=== PATIENT | female | born 1975 | race Caucasian/White ===

== ENCOUNTER → 2019-11-25 | Outpatient (CLI) | payer BC, OTHER ==
[2019-11-25 12:59] LABS: BLOOD UREA NITROGEN 10 MG/DL (7-18); CALCIUM LEVEL 9.5 MG/DL (8.5-10.1); CARBON DIOXIDE LEVEL 27 MEQ/L (21-32); CHLORIDE LEVEL 103 MEQ/L (98-107); CREATININE FOR GFR 0.82 MG/DL (0.55-1.30); GLOMERULAR FILTRATION RATE > 60.0 (>58); GLUCOSE, FASTING 182 MG/DL (70-100); MAGNESIUM LEVEL 1.8 MG/DL (1.8-2.4); PHOSPHORUS LEVEL 3.6 MG/DL (2.5-4.9); POTASSIUM SERUM 3.9 MEQ/L (3.5-5.1); SODIUM LEVEL 139 MEQ/L (136-145)
[2019-11-25 13:11] LABS: PTH INTACT 79.5 PG/ML (18.5-88.0); TOTAL 25(OH) VITAMIN D 25.6 NG/ML (30.0-100.0)
== END ==
LOC: M LAB 11:29
PROVIDERS: ATTEND Nurse Practitioner Family
DX: E83.52 Hypercalcemia (principal)

== ENCOUNTER → 2020-02-11 | Outpatient (CLI) | payer BC, OTHER ==
[2020-03-14 11:41] LABS: TESTOSTERONE FREE (DIRECT) See Separate Report PG/ML; TESTOSTERONE TOTAL FOR T&D See Separate Report NG/DL
[2020-03-26 22:24] LABS: FOLLICLE STIMULATING HORMONE 67.9 mIU/mL; LUTEINIZING HORMONE 34.6 mIU/mL
== END ==
LOC: M LAB 08:03
PROVIDERS: ATTEND Obstetrics & Gynecology
DX: N93.9 Abnormal uterine and vaginal bleeding, unspecified (principal)

== ENCOUNTER → 2020-02-11 | Outpatient (CLI) | payer BC, OTHER ==
[2020-03-26 22:21] LABS: CALCIUM LEVEL 9.5 MG/DL (8.5-10.1); PTH INTACT 73.3 PG/ML (18.5-88.0); TOTAL 25(OH) VITAMIN D 23.2 NG/ML (30.0-100.0)
== END ==
LOC: M LAB 08:01
PROVIDERS: ATTEND Nurse Practitioner Family
DX: E83.52 Hypercalcemia (principal); E55.9 Vitamin D deficiency, unspecified

== ENCOUNTER → 2023-05-07 | Outpatient (CLI) | payer BC, OTHER ==
[2023-05-07 07:03] LABS: FREE T4 1.16 NG/DL (0.89-1.76)
[2023-05-07 07:04] LABS: THYROID PEROXIDASE ANTIBODY < 28.0 U/ML (<60.0); THYROID STIMULATING HORMONE 1.822 uIU/ML (0.55-4.78)
== END ==
LOC: M LAB 06:04
PROVIDERS: ATTEND Nurse Practitioner Family
DX: E04.2 Nontoxic multinodular goiter (principal)

== ENCOUNTER → 2024-04-22 | Outpatient (REF) | LOC: M EMP 09:49 | PROVIDERS: ATTEND Family Medicine | DX: Z11.52 Encounter for screening for COVID-19 (principal) ==

== ENCOUNTER 2024-08-18 11:41 | Day surgery (SDC) | payer BC ==
[~2024-08-18] VITALS: Ht 152.4 cm; Wt 84.7 kg
[~2024-08-18 11:41] MED LIST: ATOG30TA PO; CETI10TA4 PO; FURO40TA2 PO; GLIP5TAB20 PO; JARD1TAB PO; METF-877 PO; METO1TAB7 PO; OMEP1CAP73 PO; ONDA-83 PO; POTA-149 PO; PROA1AER2 IN; RIME75TA PO; ROSU10TA61 PO; TRUL0.5I SC; VITA-243 PO; VITA100093 PO
[2024-08-18] MEDS ORDERED: LIDOCAINE 2% 100MG/5ML SDV (FOR ANES.) As Ordered ONE (14:36)
[2024-08-18] MEDS ORDERED: fentaNYL 100 MCG/2 ML INJECTION As Ordered ONE (14:36)
[2024-08-18] MEDS ORDERED: ROCURONIUM BROMIDE 50MG/5ML VIAL As Ordered ONE (14:36)
[2024-08-18] MEDS ORDERED: SUGAMMADEX SODIUM 500 MG/5 ML VIAL (BRIDION) As Ordered ONE (14:36)
[2024-08-18] MEDS ORDERED: ONDANSETRON 4MG 2ML VIAL As Ordered ONE (14:36)
[2024-08-18] MEDS ORDERED: MIDAZOLAM INJ 2MG/2ML VIAL As Ordered ONE (14:36)
[2024-08-18] MEDS ORDERED: propofoL 200 MG/20 ML VIAL As Ordered ONE (14:37)
[2024-08-18] MEDS ORDERED: ACETAMINOPHEN 1000MG/100ML IV BAG As Ordered ONE (14:44)
[2024-08-18] MEDS ORDERED: METOCLOPRAMIDE INJ 10MG/2ML VIAL As Ordered ONE (15:00)
[2024-08-18] MEDS ORDERED: PHENYLephrine 500MCG 5ML (100MCG/ML) SYRINGE As Ordered ONE (15:27)
[2024-08-18] MEDS: OXYMETAZOLINE 0.05% NASAL SPRAY As Ordered ONE (15:31)
[2024-08-18] MEDS ORDERED: fentaNYL 100 MCG/2 ML INJECTION IV PRN (15:45)
[2024-08-18] MEDS ORDERED: ONDANSETRON 4MG 2ML VIAL IV PRN (15:45)
[2024-08-18] MEDS ORDERED: LR 1,000 ML IV SCH (15:45)
[2024-08-18] MEDS: HYDROMORPHONE HCL 0.5 MG/ 0.5 ML SYRINGE IV PRN (16:03)
[2024-08-18] MEDS: oxyCODONE 5MG TAB PO PRN (16:04)
[2024-08-18 17:15] VITALS: BP 133/82; TEMP 97.8; O2SAT 95
== END 2024-08-18 17:33 | disposition home or self-care (01) ==
LOC: M SDC 11:41
PROVIDERS: ATTEND Otolaryngology
DX: J38.7 Other diseases of larynx (principal); E11.9 Type 2 diabetes mellitus without complications; Z88.0 Allergy status to penicillin; Z88.2 Allergy status to sulfonamides; Z88.4 Allergy status to anesthetic agent; Z79.899 Other long term (current) drug therapy
CPT/HCPCS: 31536; 88305; J0131; J1100; J1171; J2250; J2371; J2405; J2765; J3010

== ENCOUNTER → 2025-05-21 | Outpatient (CLI) | payer BC ==
[~2025-05-21] MED LIST changes: +GLIP-318 PO; -GLIP5TAB20 PO; -ROSU10TA61 PO; +ROSU10TA90 PO
== END ==
LOC: M RAD 16:19
PROVIDERS: ATTEND Family Medicine
DX: M25.511 Pain in right shoulder (principal)